=== PATIENT | female | born 1995 | race Caucasian/White ===

== ENCOUNTER 2019-12-13 23:20 | Inpatient (IN) | payer BC ==
[~2019-12-13] VITALS: Ht 165.1 cm; Wt 66.8 kg
[~2019-12-13 23:20] MED LIST: FLEXERIL 1010 MG/TAB PO; NO HOME MEDICATIONS
[2019-12-14] VITALS (63 sets, daily range): BP systolic 105–158; BP diastolic 60–98; PULSE 55–112; TEMP 97.3–99.5
[2019-12-14] MEDS ORDERED: PRENATAL TABLET PO (00:36)
[2019-12-14 02:05] LABS: EOS % 0.3 % (0-4.0); GRAN # 6.3 (1.4-6.5); GRAN % 71.2 % (42.2-75.2); HEMATOCRIT 30.3 % (37.0-47.0); HEMOGLOBIN 9.9 g/dl (12.5-16.0); LYMPH % 22.6 % (20.0-51.0); MEAN CELL VOLUME 88 fl (80.0-100.0); MEAN CORPUSCULAR HEMOGLOBIN 29 pg (27.0-31.0); MEAN CORPUSCULAR HGB CONC 33 g/dl (33.0-37.0); MONO # 0.5 (0.1-0.6); MONO % 5.1 % (1.7-9.3); PLATELET COUNT 165 K/mm3 (130-400); RED BLOOD COUNT 3.43 M/mm3 (4.10-5.30); REDCELL DISTRIBUTION WIDTH-CV 14.9 % (11.5-14.5)
--- NOTE | 2019-12-14 02:40 | NUR ---
SVE unchanged from previous exam. Category 1 FHR tracing. Contractions every 4-6 minutes. Pitocin initiated at 2 mu/min per augmentation protocol.
--- NOTE | 2019-12-14 03:58 | NUR ---
0345 - Pt ready for epidural. Negro Odonnell CRNA called. Will come to bedside. 0353 - DONY Abarca at bedside. Pt positioned to sitting on edge of bed. Epidural procedure, risks, and benefits reviewed, pt verbalized understanding. 0358 - Test dose by DONY Abarca. Pt denies any adverse reactions. 0405 - Pt positioned to wedge left for comfort. Reviewed safety precautions with patient and spouse. Bed in low and locked position. Call light within reach. See anesthesia record.
--- NOTE | 2019-12-14 06:20 | NUR ---
0620-Assumed care of patient at this time. Bedside shift report complete from EMMA Ferreira. Patient resting in bed with spouse at bedside. Reviewed plan of care with patient.
--- NOTE | 2019-12-14 08:25 | NUR ---
0825- on unit. Reviews FHR monitor. 0830-SVE by , Repositioned RL with peanut ball.
--- NOTE | 2019-12-14 12:55 | NUR ---
1255-SVE /+1, Updated . 1305-Begin pushing with patient. Moves vertex well. RN remains at bedside pushing.
--- NOTE | 2019-12-14 13:45 | NUR ---
1345-Dr. Johnson in to see patient and evaluate pushing efforts. Orders to continue to push. 1435-Dr. Johnson returns to patient room and begins pushing with patient. Patient moves vertex well 1440-RN resumes pushing with patient. 1450-RN requests Dr. Johnson to room for delivery from unit desk. 1453-Spontaneous delivery of infnat head assisted by Dr. Johnson, nuchal x1 reduced by MD. Immediate delviery of infant body following. Viable male nares and mouth bulb suctioned by MD. ot mothers abdomen and care of assumed by EMMA Lechuga apgars 9. 1455-Spontaneous delivery of intact placenta by MD. EBL 400ml per MD. Fundal massage firm. Lochia without clots. Pitocin bolus started per MD order and protocol. 2nd degree perineum, bilateral labial and bilaterl sulcus repairs by Dr. Johnson. Karlie care provided. Updated patient on safety and plan of care.
--- NOTE | 2019-12-14 19:15 | NUR ---
pt states "I can move my R leg fine, but my left leg not as much" Attempt to stand at bedside with assist, able to stand briefly, but unable to lock knees. Pivot transfer to wheelchair without diffculty. Transferred to room via wheelchair. Pivot transfer to bed with assist. Pt and spouse instructed to call for assistance if pt need to get out of bed, understanding verbalized.
[2019-12-15 01:05] VITALS: BP 115/77; PULSE 69; TEMP 98.3
[2019-12-15 09:00] VITALS: BP 116/69; PULSE 92; TEMP 97.8
[2019-12-15] MEDS ORDERED: IBU800 M1 PO (12:32)
[2019-12-15 14:00] VITALS: BP 101/74; PULSE 94; TEMP 98.1
[2019-12-15 17:30] VITALS: BP 111/81; PULSE 87; TEMP 97.9
--- NOTE | 2019-12-15 17:45 | NUR ---
Tylenol 650 mg given per request and as ordered.
--- NOTE | 2019-12-15 18:46 | NUR ---
Mmr vaccine given to left arm subq.
== END 2019-12-15 19:15 | disposition home or self-care (01) | DRG 807 ==
LOC: LDRO 23:20 → LDR 12-14 00:17 → OB 12-14 19:30
PROVIDERS: ADMIT Student in an Organized Health Care Education/Training Program
PROC: 10E0XZZ Delivery of Products of Conception, External Approach (ICD-10-PCS; principal; 2019-12-14)
PROC: 0KQM0ZZ Repair Perineum Muscle, Open Approach (ICD-10-PCS; 2019-12-14)
PROC: 0UQMXZZ Repair Vulva, External Approach (ICD-10-PCS; 2019-12-14)
DX: O99.02 Anemia complicating childbirth (principal); Z37.0 Single live birth; D64.9 Anemia, unspecified; O69.81X0 Labor and delivery complicated by cord around neck, without compression, not applicable or unspecified; O70.1 Second degree perineal laceration during delivery; Z3A.39 39 weeks gestation of pregnancy
CPT/HCPCS: J1200; J2405; J2590; J2795; J7120